=== PATIENT | female | born 1985 | race Caucasian/White ===

== ENCOUNTER 2021-07-25 11:31 | Emergency (ER) | payer SELFPAY | END 2021-07-25 12:40 | disposition home or self-care (01) | LOC: MADERS 11:31 | DX: R11.2 Nausea with vomiting, unspecified (principal); R51.9 Headache, unspecified; F17.210 Nicotine dependence, cigarettes, uncomplicated | CPT/HCPCS: 99283 ==

== ENCOUNTER 2023-03-12 13:20 | Emergency (ER) | payer SELFPAY ==
[2023-03-12 13:55] LABS: Pregnancy Test - Urine (BHCG) Negative (Negative)
[2023-03-12 13:56] LABS: Pregu Control Background? CLEAR/WHITE (CLR/WHITE); Pregu Control Bar Appear? YES (CONTROL BAR)
[2023-03-12] MEDS ORDERED: Ipratropium/Albuterol 3 ML NEB ONE (14:18)
[2023-03-12] MEDS ORDERED: Ketorolac Tromethamine 30 MG (1 mL) VIAL ONE (14:18)
[2023-03-12] MEDS ORDERED: Prochlorperazine 10 MG/2 ML VIAL ONE (14:18)
[2023-03-12] MEDS ORDERED: diphenhydrAMINE 50 MG/ML VIAL ONE (14:18)
[2023-03-12] MEDS ORDERED: Lactated Ringer's 1,000 ML ONE (14:19)
[2023-03-12] MEDS ORDERED: methylPREDNISolone Sod Succ/PF 125 MG/2 ML VIAL ONE (14:19)
[2023-03-12 14:21] LABS: #Basophils 0.1 thou/uL (0.0-0.2); #Monocytes 0.9 thou/uL (0.11-0.59); #Neutrophils 6.9 thou/uL (1.40-6.50); %Basophils 1.4 % (0.0-1.0); %Eosinophils 0.1 % (0.0-10.0); %Lymphocytes 19.8 % (21.0-51.0); %Monocytes 9.2 % (0.0-10.0); %Neutrophils 69.6 % (42.0-75.0); Hemoglobin 12.4 g/dL (12.0-16.0); Mean Corpuscular HGB CONC 31.9 g/dL (32.0-36.0); Mean Corpuscular Hemoglobin 24.4 pg (27.0-31.0); Mean Corpuscular Volume 76.5 fl (78.0-98.0); Mean Platelet Volume 6.9 fL (7.4-10.4); Platelet Count 353 10x3/uL (130-400); RBC Distribution Width 14.5 % (11.5-14.5); White Blood Cell (WBC) Count 9.9 10x3/uL (4.8-10.8)
[2023-03-12 14:29] LABS: Anisocytosis SLIGHT = 6-15 cells (100X) (0-5/hpf)
[2023-03-12 14:30] LABS: Platelet Adequacy Comment Appears Adequate
[2023-03-12 14:31] LABS: ALT (SGPT) 18 U/L (8-55); AST (SGOT) 24 U/L (5-34); Alkaline Phosphatase 88 U/L (40-110); Anion Gap 16 mmol/L (10-20); BUN (Urea Nitrogen) 11 mg/dL (7.0-18.7); Bilirubin, Total 0.5 mg/dL (0.2-1.2); Calc. Creatinine Clearance 0 mL/min (70-130); Calcium 9.2 mg/dL (7.8-10.44); Carbon Dioxide 22 mmol/L (22-29); Chloride 97 mmol/L (98-107); Estimated GFR 115; Globulin 3.5 g/dL (2.4-3.5); Glucose 122 mg/dL (70-105); Lipase 25 U/L (8-78); Potassium 3.9 mmol/L (3.5-5.1); Protein, Total 7.5 g/dL (6.0-8.3); Sodium 131 mmol/L (136-145)
[2023-03-12 14:32] LABS: Troponin I Less than 0.010 ng/mL (< 0.028)
== END 2023-03-12 15:26 | disposition home or self-care (01) ==
LOC: MADERS 13:20
DX: R51.9 Headache, unspecified (principal); R07.9 Chest pain, unspecified; R11.2 Nausea with vomiting, unspecified; R06.2 Wheezing; F17.210 Nicotine dependence, cigarettes, uncomplicated
CPT/HCPCS: 71046; 80053; 81025; 83690; 84484; 85025; 93005; 96361; 96374; 96375; J0780; J1200; J1885; J2930; J7120; J7620